=== PATIENT | female | born 1950 | race Caucasian/White ===

== ENCOUNTER 2017-02-28 17:29 | Inpatient (IN) | payer MEDICARE ==
[~2017-02-28] VITALS: Ht 165.1 cm; Wt 84.4 kg
--- NOTE | 2017-02-28 17:36 | NUR ---
BIB RA FROM HOME FOR DEPRESSION AND SUICIDAL ATTEMPTS WITH TYLENOL, PATIENT IS VERBALLY RESPONSIVE, AT BEDSIDE, PATIENT HAS BEEN DEPRESSED FOR 3 DAYS, HAS CUTS ON LEFT WRIST, PATIENT IS PLACED ON MONITOR, A/O X4, STATES SHE TOOK TYLENOL THROUGHOUT THE DAY, MD AT BEDSIDE UPON ARRIVAL, WILL CONTINUE TO MONITOR CLOSELY.
[2017-02-28] MEDS ORDERED: LEVO100T9 PO (17:51)
[2017-02-28] MEDS ORDERED: ALPR-322 PO (17:51)
[2017-02-28] MEDS ORDERED: OLAN10TA3 PO (17:51)
[2017-02-28] MEDS ORDERED: ACET-2605 PO (17:51)
[2017-02-28] MEDS ORDERED: ALPR2TAB97 PO (17:51)
[2017-02-28] MEDS ORDERED: SODIUM BICARBONATE SYR 50 MEQ/50 ML DISP.SYRIN ONE ×2 (17:52→18:06)
[2017-02-28 17:57] LABS: CALCIUM, SERUM 9.8 mg/dL (8.5-10.1); CARBON DIOXIDE 26 mmol/L (21-32); CHLORIDE 105 mmol/L (98-107); CREATININE 0.9 mg/dL (0.6-1.3); GLUCOSE 104 mg/dL (74-106); POTASSIUM 3.8 mmol/L (3.5-5.1); SODIUM SERUM 143 mmol/L (136-145); UREA NITROGEN, BLOOD 12 mg/dL (7-18)
[2017-02-28] MEDS ORDERED: ONDANSETRON HCL/PF - ER 4 MG/2 ML VIAL IV ONE (18:00)
[2017-02-28] MEDS ORDERED: IV NS 0.9% 1,000 ML BAG IV ONE (18:00)
[2017-02-28] MEDS ORDERED: SODIUM BICARBONATE SYR 50 MEQ/50 ML DISP.SYRIN IV ONE ×2 (18:00→18:30)
[2017-02-28 18:01] LABS: BASOPHILS % (AUTO) 0.5 % (0.0-2.0); EOSINOPHILS # (AUTO) 0.2 /CMM (0.0-0.7); EOSINOPHILS % (AUTO) 2.1 % (0.0-6.0); HEMATOCRIT 45 % (33-45); HEMOGLOBIN 15.1 g/dL (11.5-14.8); LYMPHOCYTES # (AUTO) 3.6 /CMM (0.8-4.8); LYMPHOCYTES % (AUTO) 47.8 % (20.0-44.0); MEAN CORPUSCULAR HEMOGLOBIN 30 PG (26.0-33.0); MEAN CORPUSCULAR HGB CONC 34 g/dl (31.0-36.0); MEAN CORPUSCULAR VOLUME 90 fL (82-100); MONOCYTES # (AUTO) 0.7 /CMM (0.1-1.30); MONOCYTES % (AUTO) 8.9 % (2.0-12.0); NEUTROPHILS # (AUTO) 3.1 /CMM (1.8-8.9); NEUTROPHILS % (AUTO) 40.7 % (43.0-81.0); PLATELET COUNT (AUTO) 286 /CMM (150-450); RDW COEFFICIENT OF VARIATION 14.5 (11.5-15.0); RED BLOOD CELL COUNT(AUTO) 4.97 MIL/uL (4.0-5.2); WHITE BLOOD COUNT (AUTO) 7.5 K/uL (4.3-11.0)
[2017-02-28 18:02] LABS: ACETAMINOPHEN 119 ug/ml (10-30); ALANINE AMINOTRANSFERASE 29 U/L (12-78); ALBUMIN 3.7 g/dL (3.4-5.0); ALCOHOL, BLOOD < 3 mg/dL (0-0); ALKALINE PHOSPHATASE 65 U/L (46-116); ASPARTATE AMINOTRANSFERASE 21 U/L (15-37); BILIRUBIN,DIRECT 0.1 mg/dL (0.0-0.2); BILIRUBIN,TOTAL 0.4 mg/dL (0.2-1.0); TOTAL PROTEIN, SERUM 6.9 g/dL (6.4-8.2)
[2017-02-28] MEDS ORDERED: IV NS 0.9% 1,000 ML ONE (18:03)
[2017-02-28] MEDS ORDERED: ONDANSETRON HCL/PF 4 MG/2 ML VIAL ONE (18:03)
[2017-02-28] MEDS ORDERED: IV SET PRIMARY 1 EA INFUS.SET MC ONE (18:03)
[2017-02-28 18:04] LABS: TROPONIN I < 0.017 ng/mL (0.00-0.056)
[2017-02-28 18:06] LABS: SALICYLATE 0.7 mg/dL (2.8-20.0)
[2017-02-28] MEDS ORDERED: ACETYLCYSTEINE IV ONE ×2 (18:30→20:00)
[2017-02-28] MEDS ORDERED: D5W IV ONE ×2 (18:30→20:00)
--- NOTE | 2017-02-28 18:38 | NUR ---
CALLED ASSIGNMENT MANAGER DANTE.
[2017-02-28] MEDS ORDERED: IV SET PRIMARY PUMP SET 1 EA INFUS.SET MC ONE ×2 (18:52→23:17)
--- NOTE | 2017-02-28 19:09 | NUR ---
CALLED [employer] Sensing BLENDING COORDINATOR WAS PAGED.
[2017-02-28] MEDS ORDERED: MAGNESIUM HYDROXIDE 30 ML UDC PO PRN (19:30)
[2017-02-28] MEDS ORDERED: ALPRAZOLAM 0.25 MG TABLET PO PRN (19:30)
[2017-02-28] MEDS ORDERED: MAG HYDROX/AL HYDROX/SIMETH 30 ML UDC PO PRN (19:30)
[2017-02-28] MEDS ORDERED: Z GUARD REMEDY 2 OZ OINT TP PRN (19:30)
[2017-02-28] MEDS ORDERED: ONDANSETRON HCL/PF 4 MG/2 ML VIAL IVP PRN (19:30)
[2017-02-28 19:48] LABS: APPEARANCE,URINE CLEAR (CLEAR); BILIRUBIN,URINE NEGATIVE (NEGATIVE); BLOOD, URINE NEGATIVE Ery/uL (NEGATIVE); COLOR,URINE YELLOW (YELLOW); KETONES,URINE NEGATIVE (NEGATIVE); LEUKOCYTE ESTERASE ,URINE NEGATIVE (NEGATIVE); NITRITE, URINE NEGATIVE (NEGATIVE); PROTEIN,URINE NEGATIVE (NEGATIVE); UGLUCOSE NEGATIVE (NEGATIVE); UROBILINOGEN,URINE 0.2 EU/dL (0.2)
[2017-02-28 20:55] VITALS: BP 133/78
--- NOTE | 2017-02-28 22:00 | NUR ---
RN CHANTEL - RECEIVED PT FROM ER ADMITTED FOR ACUTE ACETAMINOPHEN OVERDOSE, PT SUPPOSEDLY FEELING DEPRESSED AND TOOK 40-50 TYLENOL TABS. PT IS AOX4 CAN SPEAK GREEK, COOPERATIVE. PT IS IN SINUS RHYTHM WITH RBBB, BP WNL. PT IS ON ROOM AIR 02SAT 95%, PT IS NPO, PT IS ABLE TO GET UP TO USE BATHROOM. PT HAS R AC 18G IV. WITH ACETYLCYSTEINE THE 2ND BAG RUNNING. WILL GET THE THIRD DOSE AND NS @ 125 ML/HR. SKIN IS INTACT, EXCEPT PT HAS REDNESS UNDER LEFT BREAST. WILL CONTINUE TO MONITOR
--- NOTE | 2017-02-28 22:30 | NUR ---
POISON CONTROL CALLED TO FOLLOW UP WITH THE ACETAMINOPHEN OVERDOSE, PT IS SUPPOSED TO GET A THIRD BAG OF ACETYLCYSTEINE IV AT 100 MG/KG (84.5 KG) IN 1L D5W OVER 16 HOURS @ 62.5 ML/HR. WILL CARRY OUT. AND 1 HOUR BEFORE THE END OF THIRD BAG WILL GET TYLENOL LEVEL AND LFTS
[2017-02-28] MEDS ORDERED: ACETYLCYSTEINE 20% ORAL SOLN 6,000 MG/30 ML VIAL ONE ×2 (22:50→23:18)
[2017-02-28] MEDS ORDERED: ACETYLCYSTEINE IV 0 MG in IV D5W 1,000 ML IV SCH (23:00)
[2017-02-28] MEDS: IV NS 0.9% 1,000 ML IV PRN (23:20)
[2017-02-28] MEDS: ZOLPIDEM TARTRATE 5 MG TABLET PO PRN (23:41)
[2017-03-01] VITALS (7 sets, daily range): BP systolic 94–133; BP diastolic 55–78
[2017-03-01] MEDS: D5W IV SCH ×2 (01:00→07:30)
[2017-03-01] MEDS ORDERED: ACETYLCYSTEINE IV 0 MG in IV D5W 1,000 ML IV SCH (01:00)
[2017-03-01] MEDS: ACETYLCYSTEINE IV SCH ×2 (01:00→07:30)
--- NOTE | 2017-03-01 01:00 | NUR ---
I STARTED THE 3RD BAG OF ACETYLCYSTEINE 1L OF D5W WITH 8,450 MG OF ACETYLCYSTEINE TO INFUSE OF 16 HOURS, MEANING THIS BAG WILL END AT 03/01 1700, WILL ORDER TYLENOL LEVEL AND LFTS FOR 1700. PHARMACY DID NOT LEAVE THE 3RD BAG OF ACETYLCYSTEINE SO I COULD NOT SCAN IT, AND I COULD NOT LEAVE AN ADMIN COMMENT BECAUSE I DID AN UNSCHEDULED ADMINISTRATION
[2017-03-01 06:51] LABS: BASOPHILS % (AUTO) 0.6 % (0.0-2.0); EOSINOPHILS # (AUTO) 0.2 /CMM (0.0-0.7); EOSINOPHILS % (AUTO) 2.2 % (0.0-6.0); HEMATOCRIT 40 % (33-45); HEMOGLOBIN 13.5 g/dL (11.5-14.8); LYMPHOCYTES # (AUTO) 2.4 /CMM (0.8-4.8); MEAN CORPUSCULAR HEMOGLOBIN 31 PG (26.0-33.0); MEAN CORPUSCULAR HGB CONC 34 g/dl (31.0-36.0); MEAN CORPUSCULAR VOLUME 90 fL (82-100); MONOCYTES # (AUTO) 0.5 /CMM (0.1-1.30); MONOCYTES % (AUTO) 7.3 % (2.0-12.0); NEUTROPHILS # (AUTO) 3.9 /CMM (1.8-8.9); NEUTROPHILS % (AUTO) 55.9 % (43.0-81.0); PLATELET COUNT (AUTO) 219 /CMM (150-450); RDW COEFFICIENT OF VARIATION 14.4 (11.5-15.0); RED BLOOD CELL COUNT(AUTO) 4.42 MIL/uL (4.0-5.2)
[2017-03-01 06:59] LABS: ALBUMIN 2.9 g/dL (3.4-5.0); BILIRUBIN,TOTAL 0.2 mg/dL (0.2-1.0); CALCIUM, SERUM 8.8 mg/dL (8.5-10.1); CREATININE 0.8 mg/dL (0.6-1.3); MAGNESIUM 1.9 mg/dL (1.8-2.4); POTASSIUM 3.7 mmol/L (3.5-5.1); TOTAL PROTEIN, SERUM 5.9 g/dL (6.4-8.2)
--- NOTE | 2017-03-01 08:00 | NUR ---
New bag of Mucomyst mixed by pharmacy initiated at 0730. pt aox3 vss, no signs of allergic reaction noted. Denies pain, denies suicidal ideation at this time.
[2017-03-01] MEDS: PANTOPRAZOLE 40 MG VIAL IV SCH (08:10)
[2017-03-01] MEDS: LEVOTHYROXINE SODIUM 100 MCG TABLET PO SCH (08:10)
[2017-03-01] MEDS: IV NS 0.9% 1,000 ML IV PRN ×3 (08:11→22:39)
--- NOTE | 2017-03-01 12:30 | NUR ---
Pt ambulated in the hallway. Pt tolerates ambulation well. Verbalizes that she enjoys walking.
--- NOTE | 2017-03-01 14:00 | NUR ---
Pt seen by Dr. Nava. Pt progress and plan discussed with family and pt.
[2017-03-01] MEDS: BUPROPION XL 150 MG TAB.ER.24 PO SCH (14:33)
[2017-03-01 16:46] LABS: ALBUMIN 2.8 g/dL (3.4-5.0); BILIRUBIN,DIRECT 0.1 mg/dL (0.0-0.2); BILIRUBIN,TOTAL 0.2 mg/dL (0.2-1.0); TOTAL PROTEIN, SERUM 5.8 g/dL (6.4-8.2)
[2017-03-01] MEDS ORDERED: D5W IV ONE (17:39)
[2017-03-01] MEDS ORDERED: ACETYLCYSTEINE IV ONE (17:39)
--- NOTE | 2017-03-01 19:30 | NUR ---
RN INITIAL NOTES RECEIVED PATIENT IN BED, AWAKE, ALERT AND ORIENTED X3, CALM, WITH FAMILY MEMBERS AT BEDSIDE, 1:1 SITTER AT BEDSIDE. PATIENT ON TELEMETRY MONIOTRING REVEALING SR WITH BBB, HR = 73 AT THIS TIME. IV SITE PATENT AND INTACT, FLUSHED WITH NS, ONGOING MUCOMYST DRIP PRESCRIBED, TO BE STOPPED AFTER THIS BAG COMPLETED. PLAN OF CARE DISCUSSED WITH THE PATIENT AND FAMILY MEMBERS, ALL VERBALIZING UNDERSTANDING REGARDING THE PLAN OF CARE. WILL CONTINUE TO CLOSELY MONITOR.
[2017-03-01] MEDS ORDERED: ARIPIPRAZOLE 5 MG TABLET ONE (22:27)
[2017-03-01] MEDS: ARIPIPRAZOLE 5 MG TABLET PO SCH (22:39)
[2017-03-01] MEDS: ZOLPIDEM TARTRATE 5 MG TABLET PO PRN (22:39)
[2017-03-02] VITALS (7 sets, daily range): BP systolic 103–136; BP diastolic 55–76
[2017-03-02 06:43] LABS: BASOPHILS # (AUTO) 0.1 /CMM (0.0-0.2); BASOPHILS % (AUTO) 1.1 % (0.0-2.0); EOSINOPHILS # (AUTO) 0.2 /CMM (0.0-0.7); EOSINOPHILS % (AUTO) 3.9 % (0.0-6.0); HEMATOCRIT 38 % (33-45); HEMOGLOBIN 12.7 g/dL (11.5-14.8); LYMPHOCYTES # (AUTO) 3.1 /CMM (0.8-4.8); LYMPHOCYTES % (AUTO) 51.8 % (20.0-44.0); MEAN CORPUSCULAR HEMOGLOBIN 31 PG (26.0-33.0); MEAN CORPUSCULAR HGB CONC 34 g/dl (31.0-36.0); MEAN CORPUSCULAR VOLUME 91 fL (82-100); MONOCYTES # (AUTO) 0.4 /CMM (0.1-1.30); MONOCYTES % (AUTO) 7.3 % (2.0-12.0); NEUTROPHILS # (AUTO) 2.1 /CMM (1.8-8.9); NEUTROPHILS % (AUTO) 35.9 % (43.0-81.0); PLATELET COUNT (AUTO) 211 /CMM (150-450); RDW COEFFICIENT OF VARIATION 14.4 (11.5-15.0); RED BLOOD CELL COUNT(AUTO) 4.15 MIL/uL (4.0-5.2); WHITE BLOOD COUNT (AUTO) 5.9 K/uL (4.3-11.0)
[2017-03-02 06:58] LABS: ALBUMIN 2.7 g/dL (3.4-5.0); BILIRUBIN,TOTAL 0.3 mg/dL (0.2-1.0); CALCIUM, SERUM 8.9 mg/dL (8.5-10.1); CREATININE 0.9 mg/dL (0.6-1.3); POTASSIUM 3.9 mmol/L (3.5-5.1); TOTAL PROTEIN, SERUM 5.4 g/dL (6.4-8.2)
--- NOTE | 2017-03-02 07:01 | NUR ---
RN CLOSING NOTES PATIENT PATIENT SLEEPING IN BED AT THIS TIME, 1:1 SITTER AT BEDSIDE. NO ACUTE EVENTS OVERNIGHT. WILL ENDORSE THE PATIENT TO THE AM SHIFT NURSE FOR JULISSA
[2017-03-02] MEDS: PANTOPRAZOLE 40 MG VIAL IV SCH (08:41)
[2017-03-02] MEDS: LEVOTHYROXINE SODIUM 100 MCG TABLET PO SCH (08:41)
[2017-03-02] MEDS: BUPROPION XL 150 MG TAB.ER.24 PO SCH (08:41)
--- NOTE | 2017-03-02 14:00 | NUR ---
Per Clinton, ok for patient not to have ivf and off saline lock.
--- NOTE | 2017-03-02 19:30 | NUR ---
OLAP DEVELOPER INITIAL NOTE RECEIVED REPORT FROM LIZABETH HOWELL. PT IS IN BED, AT BEDSIDE. PT IS A/A/O X4, NO SIGNS OF SI/HI. LUNG SOUNDS CLEAR. BOWEL SOUNDS PRESENT. NO IV PRESENT. AMADOR LYNCH NP AWARE AND OKAY WITH NOT REINSERTING IV. PULSES PRESENT. SITTER AT BEDSIDE. BED IN LOW LOCKED POSITION. CALL LIGHT WITHIN REACH. WILL CONTINUE TO MONITOR.
[2017-03-02] MEDS: ARIPIPRAZOLE 5 MG TABLET PO SCH (21:43)
[2017-03-02] MEDS: ZOLPIDEM TARTRATE 5 MG TABLET PO PRN (22:31)
[2017-03-03] VITALS: BP 133/70
--- NOTE | 2017-03-03 03:56 | NUR ---
ROTARY SCREEN PRINTING MACHINE OPERATOR REPORT GIVEN TO Roger PETE NURSE FOR JULISSA. PT BEING TRANSFERRED TO [facility].
[2017-03-03 04:00] VITALS: BP_SYST 121; BP_SYST 124; BP_DIAS 66; BP_DIAS 69
--- NOTE | 2017-03-03 04:00 | NUR ---
TELE BALANCE WHEEL SCREW HOLE DRILLER INITIAL NOTES RECEIVED PT FROM TELE TD , DX OF TYLENOL OVERDOSE. PT IS ALERT ORIENTED FARSI/YI SPEAKING, ON 5150 HOLD STARTED 02/28/15 AND END 03/03/17 AT 1945. PT DENIES ANY PAIN OR ANY DISCOMFORT. NO ROBINSON LOTT AWARE PER CHANTEL NURSE. TELE SR WITH BBB HEART RATE 69 PER MONITOR. KEPT HER WARM AND COMFORTABLE AT ALL TIMES. SITTER AT THE BEDSIDE. PLACE CALL LIGHT AT REACH. WILL CONTINUE TO MONITOR.
--- NOTE | 2017-03-03 06:50 | NUR ---
TELE WEB SUPPORT ENGINEER CLOSING NOTES PT RESTING COMFORTABLY SINCE SHE CAME UP . NO SIGNS OF ANY SUICIDAL IDEATION. RESPIRATION EVEN AND NON-LABORED. NOT IN ANY ACUTE DISTRESS NOTED. TELE SR PER MONITOR. KEPT HER WARM AND COMFORTABLE AT ALL TIMES. PLACE CALL LIGHT AT REACH. ENDORSE TO AM NURSE.
[2017-03-03 07:04] VITALS: BP 129/68
--- NOTE | 2017-03-03 07:42 | NUR ---
RN OPENING NOTES RECEIVED PATIENT IN BED, AWAKE, HOB ELEVATED, NO SOB OR DISTRESS NOTED. ON TELE MONITOR SR 74. A/O X 4 VERBALLY RESPONSIVE AND ABLE TO MAKE NEEDS KNOWN. NO IV AND MD AWARE. KEPT PATIENT CLEAN AND COMFORTABLE IN BED, CALL LIGHT WITHIN PATIENT REACH, WILL CONTINUE TO MONITOR ACCORDINGLY.
[2017-03-03] MEDS: LEVOTHYROXINE SODIUM 100 MCG TABLET PO SCH (08:44)
[2017-03-03] MEDS: BUPROPION XL 150 MG TAB.ER.24 PO SCH (08:45)
[2017-03-03] MEDS: PANTOPRAZOLE 40 MG VIAL IV SCH (09:00)
--- NOTE | 2017-03-03 11:30 | NUR ---
RN NOTES DAUGHTER KRISTIN CALLED TO CHECK ON HER MOM.
[2017-03-03] MEDS ORDERED: PANTOPRAZOLE 40 MG TABLET.DR PO SCH (13:00)
--- NOTE | 2017-03-03 15:30 | NUR ---
RN NOTES PATIENT HAS NOW A 14 DAYS HOLD. I EXPLAINED AND GAVE A COPY TO THE PATIENT.
--- NOTE | 2017-03-03 15:40 | NUR ---
HEAD MEN'S GOLF COACH NOTES DISCHARGE INSTRUCTIONS GIVEN TO PATIENT AND ABLE TO UNDERSTAND INSTRUCTIONS. COPY OF THE 14 DAYS HOLD WAS EXPLAINED AND GIVEN TO THE PATIENT. PATIENT REFUSE TO BE PHOTOGRAPHED BEFORE DISCHARGE. PATIENT LEFT VIA WHEELCHAIR ACCOMPANIED WITH WELFARE MANAGER AND MYSELF IN STABLE CONDITION TO THE GPS [facility]. REPORT GIVEN TO B[place]. NO SOB OR DISTRESS NOTED. MD AND CHARGE NURSE AWARE.
[2017-03-03] MEDS ORDERED: ALPR0.25 PO (16:20)
[2017-03-03] MEDS ORDERED: ONDA-25 PO (16:20)
[2017-03-03] MEDS ORDERED: MAGN400O6 PO (16:20)
[2017-03-03] MEDS ORDERED: ARIP5TAB4 PO (16:20)
[2017-03-03] MEDS ORDERED: MAG30ORA PO (16:20)
[2017-03-03] MEDS ORDERED: ZOLP5TAB2 PO (16:20)
[2017-03-03] MEDS ORDERED: ALLA266C2 TP (16:20)
[2017-03-03] MEDS ORDERED: BUPR300T54 PO (16:20)
[2017-03-03] MEDS ORDERED: PANT40TA4 PO (16:20)
== END 2017-03-03 15:45 | DRG 917 ==
LOC: ER 17:31 → TELE-TD 20:39 → TELE1 03-01 18:07 → TELE 03-03 03:57 → MED 03-03 13:02
PROVIDERS: ADMIT Family Medicine; ATTEND Family Medicine
DX: T39.1X2A Poisoning by 4-Aminophenol derivatives, intentional self-harm, initial encounter (principal); G92 Toxic encephalopathy; F33.2 Major depressive disorder, recurrent severe without psychotic features; Y92.89 Other specified places as the place of occurrence of the external cause; E03.9 Hypothyroidism, unspecified; F17.210 Nicotine dependence, cigarettes, uncomplicated; F31.9 Bipolar disorder, unspecified; F41.9 Anxiety disorder, unspecified
CPT/HCPCS: 36415; 74000-TC; 80048-TC; 80053-TC; 80076-TC; 80305; 81000-TC; 83735-TC; 84100-TC; 84484-TC; 84703-TC; 85025-TC; 87081-TC; A4606; C9113; G0480; J0132; J2405; J3490; J7030; J7060; J7070; Z7610

== ENCOUNTER 2017-03-03 15:49 | Inpatient (IN) | payer MEDICARE ==
[~2017-03-03] VITALS: Ht 167.6 cm; Wt 83.9 kg
[~2017-03-03 15:49] MED LIST: ACET-2605 PO; ALPR-322 PO; ALPR2TAB97 PO; LEVO100T9 PO; OLAN10TA3 PO
[2017-03-03 16:00] VITALS: BP 116/73
--- NOTE | 2017-03-03 16:00 | NUR ---
ADMISSION NOTES/ PATIENT ADMIT FROM MED/SURGE 67 Y/OLD CARLOSLE FEMALE, ON 5250 HOLD. ACCORDING ON HOLD PATIENT OVERDOSE SELF WITH TYLENOL, MAJOR DEPRESSION, SI. PATIENT QUIET , V/S TAKEN GL=449/73, T-97.9, P-80, R-20, O2-97 ROOM AIR. ON FACE TO FACE ASSESSMENT PATIENT A/O X2/3, DENIED SI/HI AT THIS TIME. BREATHING EVEN, UNLABORED. PT C/O HEADACHE. PATIENT REFUSED SKIN ASSESSMENT, REFUSED PICTURE , AND REFUSED SIGN PAPERWORK. PT AMBULATORY, SELF CARE. BELONGING AND CONTRABAND CHECKED. PATIENTS RIGHT HAND BOOK GIVEN, AND EXPLAINED TO. MRSA OF NARES SWAB TAKE. DR DE LEON, AND DR VAUGHN RODRIGUEZ AWARE OF NEW PATIENT, AND NEW MEDICATION. FAMILY PRESENT DURING ADMISSION. CONTINUED MONITORING. NEEDS ATTENDED AND ANTICIPATED.
[2017-03-03] MEDS ORDERED: MAG30ORA PO (16:20)
[2017-03-03] MEDS ORDERED: ZOLP5TAB2 PO (16:20)
[2017-03-03] MEDS ORDERED: ONDA-25 PO (16:20)
[2017-03-03] MEDS ORDERED: ALLA266C2 TP (16:20)
[2017-03-03] MEDS ORDERED: ARIP5TAB4 PO (16:20)
[2017-03-03] MEDS ORDERED: ALPR0.25 PO (16:20)
[2017-03-03] MEDS ORDERED: PANT40TA4 PO (16:20)
[2017-03-03] MEDS ORDERED: BUPR300T54 PO (16:20)
[2017-03-03] MEDS ORDERED: MAGN400O6 PO (16:20)
[2017-03-03] MEDS ORDERED: TEMAZEPAM 7.5 MG CAPSULE PO PRN (16:30)
[2017-03-03] MEDS ORDERED: clonazePAM 0.5 MG TABLET PO PRN ×2 (16:30)
[2017-03-03] MEDS ORDERED: MAGNESIUM HYDROXIDE 30 ML UDC PO PRN (16:30)
[2017-03-03] MEDS ORDERED: MAG HYDROX/AL HYDROX/SIMETH 30 ML UDC PO PRN (16:30)
[2017-03-03] MEDS ORDERED: ALPRAZOLAM 0.25 MG TABLET PO PRN (17:30)
[2017-03-03] MEDS ORDERED: ONDANSETRON 4 MG TAB.RAPDIS SL PRN (17:30)
[2017-03-03] MEDS ORDERED: Z GUARD REMEDY 2 OZ OINT TP PRN (17:30)
[2017-03-03] MEDS ORDERED: ACETAMINOPHEN ES 500 MG TABLET PO PRN (18:30)
[2017-03-03 20:00] VITALS: BP 122/68
[2017-03-03] MEDS ORDERED: ARIPIPRAZOLE 5 MG TABLET PO SCH (22:00)
[2017-03-04 06:55] LABS: ALBUMIN 3.2 g/dL (3.4-5.0); BILIRUBIN,TOTAL 0.4 mg/dL (0.2-1.0); CALCIUM, SERUM 9.4 mg/dL (8.5-10.1); CREATININE 0.9 mg/dL (0.6-1.3); TOTAL PROTEIN, SERUM 6.5 g/dL (6.4-8.2)
[2017-03-04] MEDS ORDERED: PANTOPRAZOLE 40 MG TABLET.DR PO SCH (07:30)
[2017-03-04] MEDS ORDERED: LEVOTHYROXINE SODIUM 100 MCG TABLET PO SCH (07:30)
[2017-03-04 08:00] VITALS: BP 114/76
--- NOTE | 2017-03-04 08:26 | NUR ---
Initial DC Plan: Patient resides in a home located at [address] [place] [address]; [phone]. She lives at home with her , son, and daughter. Sw contacted the patient's (Sp Diaz- [phone]) who stated that he would like for the patient to return home and is able to pick her up. Patient will be given substance abuse referrals prior to discharge. Sw will help form a safe and proper discharge plan.
--- NOTE | 2017-03-04 10:33 | NUR ---
Psychiatrist okay with discharging the patient today. Informed the patient's Sp Diaz ([phone]) that patient can be picked up at 1:30pm and confirmed this with psychiatrist and the patient's nurse. Dr. Nava able to follow the patient in his office located at [address] [place] [id number]; [phone]. Patient made an appt with the psychiatric secretary Migdalia from the office of Dr. Nava for Tuesday March 07, 2017 at 12pm to address her abuse of over the counter medications and agreed to attend the appt.
--- NOTE | 2017-03-04 11:40 | NUR ---
DR. DE LEON WITH AN ORDER TO D/C HOLD AND D/C HOME. PT. WITHOUT DISTRESS, DENIES SUICIDAL AND HOMICIDAL. TO FOLLOW UP WITH PSYCH AND MEDICAL DOCTORS.VAUGHN RODRIGUEZ MADE AWARE OF THE DISCHARGE AND SAID OK FOR DISCHARGE AND WROTE A PRESCRIPTION. PT. SIGNED THE DISCHARGE PAPERS AND BELONGINGS READY.
--- NOTE | 2017-03-04 13:30 | NUR ---
PT. LEFT THE UNIT WITH BELONGINGS AND PICKED BY ISSA LEIJA THE . PT. INSTRUCTED ON MEDS TO CONTINUE AT HOME AND VERBALIZES UNDERSTANDING AND ADVISED TO MAKE A FOLLOW UP WITH PSYCH AND MEDICAL DOCTORS AND AGREED. PT. LEFT THE UNIT VIA A WHEELCHAIR AND WHEELED BY STAFF TO THE LOBBY. LEFT WITHOUT DISTRESS AND ON STABLE CONDITION. V/S TAKEN: BP 134/83, RR 18, IN 77, TEMP 97.7 AND OXYGEN SAT 94%.
--- NOTE | 2017-03-04 14:49 | NUR ---
Discharge Note: Patient was discharged back home to [address] [place] [address]; [phone]. Sp Diaz ([phone]) picked her up via private transportation. Dr. Nava able to follow the patient in his office located at [address] [facility] [address] [address]; [phone]. Patient made an appt with the secretary book keeper Migdalia from the office of Dr. Nava for Tuesday March 07, 2017 at 12pm to address her abuse of over the counter medications and agreed to attend the appt. Patient is denying suicidal/homicidal ideations. Facilitated information to IDT team who are in agreement with dc arrangement. The multidisciplinary exitcare form was done, printed, signed, and given to the patient.
== END 2017-03-04 13:30 | disposition home or self-care (01) | DRG 885 ==
LOC: GPS 15:49
PROVIDERS: ADMIT Psychiatry & Neurology Psychiatry; ATTEND Nurse Practitioner Acute Care
DX: F33.2 Major depressive disorder, recurrent severe without psychotic features (principal); Z91.5 Personal history of self-harm; E78.5 Hyperlipidemia, unspecified; F17.210 Nicotine dependence, cigarettes, uncomplicated; E03.9 Hypothyroidism, unspecified; E66.9 Obesity, unspecified; F60.9 Personality disorder, unspecified; F31.9 Bipolar disorder, unspecified; Z68.29 Body mass index [BMI] 29.0-29.9, adult
CPT/HCPCS: 36415; 80053-TC; 80061-TC; 87081-TC